=== PATIENT | male | born 1965 | race Caucasian/White ===

== ENCOUNTER 2020-11-14 12:36 | Emergency (ER) | payer SELFPAY ==
[~2020-11-14] VITALS: Ht 172.7 cm; Wt 86.0 kg
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
--- NOTE | 2020-11-14 13:40 | NUR ---
PT SLEEPING IN BED, IN NAD. ATTACHED TO MONITRS. CALL LIGHT WITHINN REACH.
--- NOTE | 2020-11-14 13:42 | NUR ---
GAVE PT MILK, CEREAL, AND PEANUTBUTTER SANDWICH TO HELP SOBER UP. PT NOT INTERESTING IN EATING RIGHT NOW.
--- NOTE | 2020-11-14 15:17 | NUR ---
GAVE GIRMA A FOOD TRAY TO HELP SOBER UP. HE IS WAKING UP AND HAS BEEN INSTRUCTED TO EAT.
--- NOTE | 2020-11-14 16:00 | NUR ---
PT GOT UP WANDERING HALLS. TAKEN BACK TO ROOM AND HAD PT URINATE IN URINAL. PT CURRENTLY EATING ED FOOD TRAY. WAITIGN TO [facility].
--- NOTE | 2020-11-14 16:32 | NUR ---
PT ATE 90% OF FOOD AND DRANK 720 ML. TOOK PT TO WALK DOWN HALLWAY. GAIT WAS VERY UNSTEADY. GOT PT BACK INTO BED. ATTACHED TO MONITORS. WILL CONTINUE TO SOBER PT UP. PT IN NAD. BREATHING EVEN AND UNLABORED.
--- NOTE | 2020-11-14 18:23 | NUR ---
BREAK RN: PT ASLEEP WITH EVEN AND UNLABORED RESPIRATIONS. VSS. HERNADEZ
[2020-11-14 19:59] VITALS: BP 124/85
== END 2020-11-14 20:02 | disposition home or self-care (01) ==
LOC: ED 16:26
DX: S09.90XA Unspecified injury of head, initial encounter (principal); F10.129 Alcohol abuse with intoxication, unspecified; Z72.9 Problem related to lifestyle, unspecified; R41.82 Altered mental status, unspecified; Y90.0 Blood alcohol level of less than 20 mg/100 ml; W01.0XXA Fall on same level from slipping, tripping and stumbling without subsequent striking against object, initial encounter; Y93.89 Activity, other specified; Y92.89 Other specified places as the place of occurrence of the external cause; Y99.8 Other external cause status
CPT/HCPCS: 70450; 99285